=== PATIENT | male | born 1930 | race Caucasian/White ===

== ENCOUNTER 2018-10-12 19:21 | Inpatient (IN) | payer MEDICARE, BC ==
[2018-10-12] MEDS ORDERED: Metoclopramide HCl 10 MG/2 ML VIAL ONE (19:29)
--- NOTE | 2018-10-12 19:53 | RAD ---
XR Chest 1 View Portable History: Chest pain Comparison: None. Findings: Heart size is enlarged. Left lower lobe airspace opacity. Mild ectasia of the aorta. No pne umothorax. No significant effusion. No acute osseous abnormality. Impression: Left lower lobe opacity suggesting pneumonia. Follow-up after treatment recommended.
[2018-10-12 20:07] LABS: #Eosinphils 0.1 thou/uL (0.0-0.7); #Monocytes 0.3 thou/uL (0.11-0.59); #Neutrophils 6.1 thou/uL (1.40-6.50); %Basophils 0.6 % (0.0-1.0); %Eosinophils 1.1 % (0.0-10.0); %Lymphocytes 13.5 % (21.0-51.0); %Monocytes 3.7 % (0.0-10.0); %Neutrophils 81.2 % (42.0-75.0); Hemoglobin 14.4 g/dL (14.0-18.0); Mean Corpuscular HGB CONC 33.3 g/dL (32.0-36.0); Mean Corpuscular Hemoglobin 30.3 pg (27.0-31.0); Mean Corpuscular Volume 91.1 fL (78.0-98.0); Platelet Count 163 thou/uL (130-400); RBC Distribution Width 13.4 % (11.5-14.5); Red Blood Cell (RBC) Count 4.76 mill/uL (4.70-6.10); White Blood Cell (WBC) Count 7.5 thou/uL (4.8-10.8)
[2018-10-12 20:26] LABS: ALT (SGPT) 28 U/L (8-55); AST (SGOT) 29 U/L (5-34); Acetaminophen Less than 6.0 mcg/mL (10.0-30.0); Alcohol Less than 10 mg/dL (Less than 10); Alkaline Phosphatase 92 U/L (40-150); Anion Gap 17 mmol/L (10-20); BUN (Urea Nitrogen) 19 mg/dL (8.4-25.7); Bilirubin, Total 1.7 mg/dL (0.2-1.2); CK (CPK) 187 U/L (30-200); Calc. Creatinine Clearance 0 mL/min (70-130); Calcium 8.8 mg/dL (7.8-10.44); Carbon Dioxide 20 mmol/L (23-31); Chloride 106 mmol/L (98-107); Estimated GFR-MDRD 89; Globulin 2.7 g/dL (2.4-3.5); Glucose 125 mg/dL (83-110); Potassium 3.4 mmol/L (3.5-5.1); Protein, Total 6.7 g/dL (5.8-8.1); Salicylate Less than 8.0 mg/dL (15.0-30.0); Sodium 140 mmol/L (136-145)
--- NOTE | 2018-10-12 20:31 | CT ---
CT Brain WO Con History: Extreme headache Comparison: None. Findings: Likely a late subacute right posterior MCA territory infarction. No significant expected di latation of the right lateral ventricle. Moderate microvascular ischemic changes. No acute hemorrhage. No midline shift or mass effect. Basilar cisterns are patent. Calvarium is intact. Paranasal sinuses and mastoids are clear. Impression: Likely a late subacute right posterior MCA territory infarction. No hemorrhagic transform ation.
[2018-10-12] MEDS ORDERED: Ondansetron PF 4 MG/2 ML Vial ONE (20:36)
[2018-10-12] MEDS ORDERED: Clindamycin/D5W 600 mg/50 ml Premix Bag ONE (22:18)
[2018-10-12] MEDS ORDERED: Aspirin Chewable 81 MG TAB ONE (22:18)
[2018-10-12] MEDS ORDERED: Ondansetron ODT 4 MG TAB PO PRN (22:28)
[2018-10-12] MEDS ORDERED: Acetaminophen 325 MG TAB PO PRN (22:28)
[2018-10-12] MEDS ORDERED: Ondansetron PF 4 MG/2 ML Vial IVP PRN (22:28)
[2018-10-12] MEDS ORDERED: Acetaminophen 650 MG Suppository PR PRN (22:28)
[2018-10-12] MEDS ORDERED: cefTRIAXone\\ROCEPHIN 2 GM VIAL ONE (23:16)
--- NOTE | 2018-10-12 23:29 | HP ---
PRIMARY CARE DOCTOR: Out of town physician. CODE STATUS: Full code. TIME OF EVALUATION: 10:30 p.m. CHIEF COMPLAINT: Headache. HISTORY OF PRESENT ILLNESS: This is an 88-year-old male patient with past medical history of stroke; coronary artery disease, status post stent; hypertension, came to the hospital after having severe headache. The patient had severe headache. For that reason, they called the ambulance, with no clear triggers, no alleviating factors, associated with diaphoresis. The symptoms started around 6:00 p.m. and has resolved by itself. Symptoms were severe. REVIEW OF SYSTEMS: CONSTITUTIONAL: No fever, chills, or generalized weakness. RESPIRATORY: No cough, sputum production, or shortness of breath. CARDIOVASCULAR: No chest pain or palpitation. GASTROINTESTINAL: No nausea, no vomiting, diarrhea, or abdominal pain. CENTRAL NERVOUS SYSTEM: The patient has headache. No dizziness or feeling lightheaded. GENITOURINARY: No burning on urination. EXTREMITIES: No leg swelling. The patient does have some venous stasis in bilateral lower extremities. All other systems were reviewed and negative except for the findings mentioned above. PAST MEDICAL HISTORY: As mentioned in the HPI. FAMILY HISTORY: Reviewed and noncontributory to current presentation. PAST SURGICAL HISTORY: The patient has CABG x4 vessels with total knee replacement for both knees, cataract, coronary artery bypass graft surgery. SOCIAL HISTORY: No alcohol. No drugs. No smoking history. The patient lives with family. ALLERGIES: NO KNOWN DRUG ALLERGIES. REPORTED MEDICATIONS: 1. Avodart. 2. Eliquis. 3. Valsartan. 4. Alfuzosin. 5. Coenzyme Q10. 6. [place]-3. PHYSICAL EXAMINATION: VITAL SIGNS: On presentation, blood pressure 175/101 with heart rate 89, temperature 97.6. GENERAL APPEARANCE: The patient is alert, oriented, no acute distress. HEENT: Eyes, normal conjunctivae. Moist oral mucosa. Anicteric. No JVD. RESPIRATORY: Bilateral air entry. No rales. No wheezes. Symmetric expansion. CARDIOVASCULAR: Normal rate. Regular rhythm. No murmurs, no gallop. No edema. ABDOMEN: Soft. Normal bowel sounds. MUSCULOSKELETAL: Baseline range of motion and strength. No tenderness. SKIN: Warm, intact. No pallor. No rash. No redness. Capillary refill seems to be intact. NEUROLOGIC: No evidence of any new focal weakness. The patient is coherent. The patient does have some gait instability, however, I am unable to examine that part. The patient is reported being tired. PSYCHIATRIC: The patient is in good mood. No anxiety. Optimal judgment. DIAGNOSTIC STUDIES: EKG was reviewed. The patient has fibrillation at the rate of 86, QRS 100, QT corrected 497. Patient has prolonged QT. Brain CT was done. The patient has likely subacute right posterior MCA territory infarction, normal right consolidation. Chest x-ray was reviewed. The patient has left lower lobe opacities suggesting pneumonia. Followup treatment recommended. LABORATORY DATA: Reviewed. The patient has white count 7.5, hemoglobin 14.4, platelet count 163. Chemistry; sodium 140, potassium 3.4, chloride 106, carbon dioxide 20, anion gap 17, BUN 19, creatinine 0.82, GFR 89, glucose 125. Lactic acid 2.2, calcium 8.8, total bilirubin 1.7, AST 29, ALT 28. CK 187. Troponin was negative. Serum total protein 6.7, albumin 4.0, globulin 2.7, albumin globulin ratio is 1.5. Toxicology was negative. ASSESSMENT AND PLAN: The patient has been admitted to the hospital with the following medical problems; 1. Subacute right posterior MCA territory infarction. The patient will be admitted to the Stroke Unit. The patient may have a stroke protocol. We will follow with the MRI, echo, carotid Doppler, Neuro consultation, Stroke Team consultation. We will allow permissive hypertension. Reconcile home medications. 2. The patient has atrial fibrillation with rate control. The patient was on blood thinners. We will continue for now. Reconcile home medications. 3. Left lower lobe pneumonia. There was concern for aspiration/community-acquired pneumonia. The patient has been started on broad-spectrum antibiotics. We will continue for now. We will follow cultures. We will adjust treatment as needed. 4. History of coronary artery disease. Troponins are negative. No chest pain. Seems to be stable. We will reconcile home medications and treat accordingly. 5. Uncontrolled hypertension with systolic blood pressure 175/101. We will allow permissive hypertension. We will reconcile home medications, adjust treatment as needed. 6. Deep venous thrombosis prophylaxis. Job ID: [id number]
[2018-10-12 23:55] LABS: Lactic Acid 1.4 mmol/L (0.5-2.2)
[2018-10-12] MEDS ORDERED: Piperacillin/Tazobactam 3.375 GM in Sodium Chloride 0.9% 100 ML IVPB SCH (23:59)
[2018-10-13 00:01] LABS: Bilirubin Negative (Negative); Blood, Urine Negative (Negative); Clarity CLOUDY (Clear); Glucose, Urine (Dipstick) Negative (Negative); Leukocyte Negative (Negative); Nitrite Negative (Negative); Protein, Urine (Dipstick) Negative (Neg-Trace); Specific Gravity, Urine 1.012 (1.002-1.036)
[2018-10-13 00:23] LABS: Amphetamine Not Detected (NotDetected); Barbiturates Screen Not Detected (NotDetected); Benzodiazepine Screen Detected (NotDetected); Cocaine Metabolite Screen Not Detected (NotDetected); Medtox Control Line Valid? VALID (VALID); Medtox Reader # READER 4; Methadone Not Detected (NotDetected); Methamphetamine Not Detected (NotDetected); Opiate Screen Not Detected (NotDetected); Oxycodone Screen Not Detected (NotDetected); Phencyclidine (PCP) Not Detected (NotDetected); THC/Cannabinoid Screen Not Detected (NotDetected); Tricyclic Screen Not Detected (NotDetected)
[2018-10-13 01:59] VITALS: BMI 25.7
[2018-10-13 05:40] LABS: #Monocytes 0.4 thou/uL (0.11-0.59); %Basophils 0.6 % (0.0-1.0); %Eosinophils 0.6 % (0.0-10.0); %Lymphocytes 15.7 % (21.0-51.0); %Monocytes 5.6 % (0.0-10.0); %Neutrophils 77.5 % (42.0-75.0); Hemoglobin 13.5 g/dL (14.0-18.0); Mean Corpuscular HGB CONC 32.2 g/dL (32.0-36.0); Mean Corpuscular Hemoglobin 29.5 pg (27.0-31.0); Mean Corpuscular Volume 91.6 fL (78.0-98.0); Mean Platelet Volume 7.3 fL (7.4-10.4); Platelet Count 176 thou/uL (130-400); RBC Distribution Width 13.6 % (11.5-14.5); Red Blood Cell (RBC) Count 4.57 mill/uL (4.70-6.10); White Blood Cell (WBC) Count 6.5 thou/uL (4.8-10.8)
[2018-10-13] MEDS: Piperacillin/Tazobactam 3.375 GM in Sodium Chloride 0.9% 100 ML IVPB SCH ×3 (06:00→18:08)
[2018-10-13 06:01] LABS: Anion Gap 12 mmol/L (10-20); BUN (Urea Nitrogen) 16 mg/dL (8.4-25.7); Calc. Creatinine Clearance 69 mL/min (70-130); Calcium 8.9 mg/dL (7.8-10.44); Carbon Dioxide 25 mmol/L (23-31); Cardiac Risk 4.5 (Less than 4.5); Chloride 108 mmol/L (98-107); Cholesterol 143 mg/dl (< 200 Desired); Estimated GFR-MDRD 90; Glucose 117 mg/dL (83-110); HDL Cholesterol 32 mg/dL (>60 Neg Risk); LDL Cholesterol, Calculated 101 mg/dL; Potassium 3.6 mmol/L (3.5-5.1); Sodium 141 mmol/L (136-145); Triglycerides 52 mg/dL (Less than 150)
--- NOTE | 2018-10-13 07:57 | ULT ---
EXAM: Carotid vascular duplex with color and spectral Doppler imaging: HISTORY: Stroke COMPARISON: None FINDINGS: There is bilateral distal CCA and proximal ICA plaque and wall thickening. Right ICA: PSV: 23 cm/s EDV: 10 cm/s ICA/CCA ratio: 0.5 Left ICA: PSV: 30.3 cm/s EDV: 11 cm/s ICA/CCA ratio: 0.7 Antegrade flow is seen in both vertebral arteries.. IMPRESSION: Somewhat abnormally low peak systolic velocities particularly in the right internal carotid artery. N o significant focal hemodynamically significant stenosis. Extensive bilateral visual plaque. Consider follow-up CT angiogram neck for further assessment.
[2018-10-13] MEDS ORDERED: Prevnar 13-Val Conj/PF 0.5 ML SYRINGE IM ONE (09:00)
--- NOTE | 2018-10-13 09:15 | PDOC.PN ---
- Subjective Encounter Start Date: 10/13/18 Encounter Start Time: 11:30 Subjective: Patient with resolved headache. No more nause or vomiting. CT with -: late subacute stroke right post MCA. - Objective Resuscitation Status - Order Detail: 10/12/18 22:28 Resuscitation Status Routine Resuscitation Status: FULL: Full Resuscitation MAR Reviewed: Yes Vital Signs & Weight: Vital Signs (12 hours) Temp Pulse Resp BP Pulse Ox 10/13/18 07:52 97.7 F 65 16 141/84 H 95 10/13/18 04:00 97.5 F L 80 16 129/92 H 97 10/13/18 01:25 97.4 F L 82 18 152/85 H 96 Weight Weight 169 lb 7 oz I&O: 10/12/18 10/13/18 10/14/18 06:59 06:59 06:59 Intake Total 350 Output Total 200 Balance 150 Result Diagrams: 10/13/18 05:08 10/13/18 05:08 Phys Exam - Physical Examination Constitutional: NAD HEENT: PERRLA, moist MMs Respiratory: no wheezing, no rales, no rhonchi Cardiovascular: RRR, no significant murmur Gastrointestinal: soft, non-tender, positive bowel sounds Neurological: non-focal, moves all 4 limbs Psychiatric: normal affect, A&O x 3 Dx/Plan (1) Headache Code(s): R51 - HEADACHE Status: Acute Comment: possibly related to late subacute stroke on CT though not sure why symptoms would only have started yesterday, possibly migraine? (2) Ischemic stroke Code(s): I63.9 - CEREBRAL INFARCTION, UNSPECIFIED Status: Acute Comment: late subacute on CT, neuro consulted, MRI pending (3) Pneumonia Code(s): J18.9 - PNEUMONIA, UNSPECIFIED ORGANISM Status: Acute Qualifiers: Laterality: left Lung location: lower lobe of lung Comment: possiby aspiration in the setting of stroke, on Zosyn and Azithromycin since 10/12/18 (4) CAD (coronary artery disease) Code(s): I25.10 - ATHSCL HEART DISEASE OF [place] CORONARY ARTERY W/O ANG PCTRS Status: Chronic (5) HTN (hypertension) Code(s): I10 - ESSENTIAL (PRIMARY) HYPERTENSION Status: Chronic Qualifiers: Hypertension type: essential hypertension Qualified Code(s): I10 - Essential (primary) hypertension Comment: allowing permissive hypertension (6) Atrial fibrillation Code(s): I48.91 - UNSPECIFIED ATRIAL FIBRILLATION Status: Chronic Qualifiers: Atrial fibrillation type: chronic Qualified Code(s): I48.2 - Chronic atrial fibrillation Comment: continue Eliquis - Plan cont current plan of care, continue antibiotics, PT/OT, DVT proph w/SCDs Patient passed swallow study with speech -: Neuro consult pending * . - Discharge Day Encounter end time: 11:40
--- NOTE | 2018-10-13 10:26 | MRI ---
MRI Brain WO Con History: Stroke Comparison: CT brain prior day Findings: Old right posterior division right MCA infarction. On the diffusion weighted imaging sequen ce there are no abnormal areas of diffusion restriction. This confirmed on the ADC map. Moderate microvascular ischemic changes. Mild atrophy. Moderate laminar necrosis on the right posteri or parietal sulci and gyri. The globes are intact. Corpus callosum is intact. Marrow signal of the clivus is intact. There is extensive pannus formation and synovitis along the od ontoid process and possible old fracture. Impression: 1. Old right posterior division right MCA infarction. 2. Extensive pannus formation and synovitis of the odontoid process with possible old fracture.
[2018-10-13] MEDS: Apixaban 5 MG TAB PO SCH (18:08)
[2018-10-13] MEDS ORDERED: Azithromycin 500 MG in Sodium Chloride 0.9% 250 ML 250 ML IVPB SCH (23:00)
[2018-10-14] MEDS: Piperacillin/Tazobactam 3.375 GM in Sodium Chloride 0.9% 100 ML IVPB SCH ×3 (01:42→12:17)
[2018-10-14 07:55] VITALS: TEMP 97.6
--- NOTE | 2018-10-14 07:58 | PDOC.PN ---
- Subjective Encounter Start Date: 10/14/18 Encounter Start Time: 10:50 Subjective: Patient without further LOZADA, nausea, or dizziness. Feeling well. No -: SOB. No cough. No fever. - Objective Resuscitation Status - Order Detail: 10/13/18 12:15 Resuscitation Status Routine Resuscitation Status: DNAR: NO Resuscitation Discussed with: patient Additional comments: Pt son, Vladimir Gupta was also present for pt discussion. MAR Reviewed: Yes Vital Signs & Weight: Vital Signs (12 hours) Temp Pulse Resp BP Pulse Ox 10/14/18 07:54 97.6 F 76 16 168/87 H 95 10/14/18 04:00 97.5 F L 75 16 155/75 H 95 10/14/18 00:00 98.1 F 60 16 110/60 95 10/13/18 20:00 98.2 F 77 16 136/71 95 Weight Weight 169 lb 7 oz I&O: 10/13/18 10/14/18 10/15/18 06:59 06:59 06:59 Intake Total 350 1650 Output Total 200 Balance 150 1650 Result Diagrams: 10/13/18 05:08 10/13/18 05:08 Phys Exam - Physical Examination Constitutional: NAD HEENT: moist MMs Respiratory: no wheezing, no rales, no rhonchi, clear to auscultation bilateral Cardiovascular: RRR Gastrointestinal: soft, positive bowel sounds Neurological: non-focal, moves all 4 limbs Psychiatric: normal affect, A&O x 3 Dx/Plan (1) Headache Code(s): R51 - HEADACHE Status: Resolved Comment: old stroke, nothing acute on MRI, possibly migraine (2) Ischemic stroke Code(s): I63.9 - CEREBRAL INFARCTION, UNSPECIFIED Status: Acute Comment: late subacute on CT, neuro consulted, MRI with old stroke only, nothing acute (3) Pneumonia Code(s): J18.9 - PNEUMONIA, UNSPECIFIED ORGANISM Status: Acute Qualifiers: Laterality: left Lung location: lower lobe of lung Comment: on Zosyn and Azithromycin since 10/12/18, clinically doing well, will transition to oral abx (4) CAD (coronary artery disease) Code(s): I25.10 - ATHSCL HEART DISEASE OF [place] CORONARY ARTERY W/O ANG PCTRS Status: Chronic (5) HTN (hypertension) Code(s): I10 - ESSENTIAL (PRIMARY) HYPERTENSION Status: Chronic Qualifiers: Hypertension type: essential hypertension Qualified Code(s): I10 - Essential (primary) hypertension Comment: allowing permissive hypertension (6) Atrial fibrillation Code(s): I48.91 - UNSPECIFIED ATRIAL FIBRILLATION Status: Chronic Qualifiers: Atrial fibrillation type: chronic Qualified Code(s): I48.2 - Chronic atrial fibrillation Comment: continue Eliquis - Plan cont current plan of care, continue antibiotics, PT/OT, DVT proph w/SCDs cleared to discharge by Dr. Hawk will f/u with his PCP and his -: neurologist at [facility] in [place]. * . - Discharge Day Encounter end time: 11:15
[2018-10-14] MEDS ORDERED: Non-Formulary Item 1 EACH (Ubidecarenone [Co Q-10] 200 MG) PO SCH (09:00)
[2018-10-14] MEDS ORDERED: Non-Formulary Item 1 EACH (Omega-3 Fatty Acids/Fish Oil [Omega 3 1,000 Mg Softgel] 1 CAP) PO SCH (09:00)
[2018-10-14] MEDS ORDERED: Alfuzosin 10 MG TABDR...ER PO SCH (09:00)
[2018-10-14] MEDS ORDERED: Fish Oil 1,000 MG CAP PO SCH (09:00)
[2018-10-14] MEDS ORDERED: Dutasteride 0.5 MG CAP PO SCH (09:00)
[2018-10-14] MEDS ORDERED: Ubidecarenone 50 MG CAP PO SCH ×2 (09:00)
[2018-10-14] MEDS: Apixaban 5 MG TAB PO SCH (09:06)
[2018-10-14 11:43] VITALS: BP 136/82
--- NOTE | 2018-10-14 22:31 | DIS ---
DATE OF ADMISSION: 10/13/2018 DATE OF DISCHARGE: 10/14/2018 PRIMARY CARE PHYSICIAN: Out of town physician. REASON FOR ADMISSION: Possible stroke and pneumonia. DIAGNOSES AT DISCHARGE: 1. Headache, likely migraine, resolved. 2. Ischemic stroke, old. 3. Pneumonia. 4. Coronary artery disease. 5. Hypertension. 6. Chronic atrial fibrillation, on anticoagulation. PROCEDURES: 1. CT of the brain showing likely a late subacute right posterior MCA territory infarction. 2. MRI of the brain showing old right posterior division right MCA infarction. 3. Ultrasound carotid Dopplers bilaterally showing no focal hemodynamically significant stenosis, but somewhat abnormally low peak systolic velocities in the right internal carotid artery and extensive bilateral visible plaque. 4. Echocardiogram showing ejection fraction of 50% to 55%, with severe tricuspid regurgitation and elevated right ventricular systolic pressures. CONSULTATIONS: Neurology, Dr. Hawk. SUMMARY OF HOSPITAL COURSE: This is an 88-year-old white male with a known history of previous stroke, also with coronary artery disease and hypertension. He developed severe headache, pressure sensation without clear triggers associated with nausea and significant vomiting. Symptoms have mostly resolved when he arrived in the emergency room. The patient had a CT scan with above results. He was admitted for possible stroke. He is also noted to have left lower lobe pneumonia. The patient was observed in the hospital. He had no neurologic symptoms during his hospitalization. His headache resolved completely and he had no nausea or vomiting during hospitalization, no dizziness. He had MRI done as above. Neurology was consulted. Dr. Hawk determined this was likely not related to an acute neurologic insult and not likely seizure activity, more likely migraine or other source for the headache and the patient was cleared for discharge. DISCHARGE MANAGEMENT: Discharged home. FOLLOWUP: Follow up with primary care physician in couple of weeks, and either with [place] neurologist or Dr. Hawk. ACTIVITY: As tolerated. DIET: Healthy heart diet. MEDICATIONS: 1. Azithromycin 250 mg daily for another 3 days. 2. Omnicef 300 mg twice a day, 14 capsules dispensed. 3. Continue alfuzosin extended release 10 mg daily. 4. Eliquis 5 mg twice a day. 5. Avodart 0.5 mg daily. 6. Losartan/hydrochlorothiazide 50/12.5 mg daily. 7. [place]-3 1000 mg soft gel daily. 8. Coenzyme Q10 200 mg daily. TIME SPENT: Arranging the details of this discharge took 32 minutes. Job ID: [id number]
== END 2018-10-14 13:38 | disposition home or self-care (01) | DRG 102 ==
LOC: ERS 19:21 → 2SE 10-13 01:48
PROVIDERS: ADMIT Hospitalist; ATTEND Hospitalist
DX: G43.909 Migraine, unspecified, not intractable, without status migrainosus (principal); J18.1 Lobar pneumonia, unspecified organism; I25.10 Atherosclerotic heart disease of native coronary artery without angina pectoris; Z66 Do not resuscitate; I10 Essential (primary) hypertension; I48.2 Chronic atrial fibrillation; Z96.653 Presence of artificial knee joint, bilateral; Z86.73 Personal history of transient ischemic attack (TIA), and cerebral infarction without residual deficits; Z79.01 Long term (current) use of anticoagulants; Z95.1 Presence of aortocoronary bypass graft; Z98.49 Cataract extraction status, unspecified eye; Z95.5 Presence of coronary angioplasty implant and graft
CPT/HCPCS: 36415; 70450; 70551; 71045; 80048; 80053; 80061; 80306; 80307; 81003; 82550; 83605; 84484; 85025; 87040; 87086; 90471; 90670; 93005; 93306; 93880; G0009; J0456; J0696; J2405; J2543; J2765; J3490; J7050